=== PATIENT | female | born 1965 | race Native Hawaiian/Other Pacific Islander ===

== ENCOUNTER 2018-04-14 00:23 | Emergency (ER) | payer BC ==
[~2018-04-14] VITALS: Ht 177.8 cm; Wt 115.7 kg
[2018-04-14] MEDS ORDERED: METO50TA27 PO (01:39)
[2018-04-14 02:21] LABS: PLATELET COUNT 280 K/uL (152-353)
[2018-04-14 02:51] LABS: POTASSIUM 4.2 mmol/L (3.6-5.2)
[2018-04-14 05:00] VITALS: BP 158/72; TEMP 98
== END 2018-04-14 05:01 | disposition home or self-care (01) ==
LOC: ED 00:23
PROVIDERS: Specialist
DX: I80.9 Phlebitis and thrombophlebitis of unspecified site (principal)
CPT/HCPCS: 36415; 80053; 81000; 83735; 85027; 85379; 96365; 96375; 99284

== ENCOUNTER 2019-07-09 00:48 | Emergency (ER) | payer BC ==
[~2019-07-09] VITALS: Ht 177.8 cm; Wt 113.4 kg
[~2019-07-09 00:48] MED LIST: METO50TA27 PO
[2019-07-09 01:30] LABS: PLATELET COUNT 291 K/uL (152-353)
[2019-07-09 01:41] LABS: POTASSIUM 3.5 mmol/L (3.6-5.2); SODIUM 141 mmol/L (136-145)
[2019-07-09 03:05] VITALS: BP 132/79; TEMP 97.7
== END 2019-07-09 03:12 | disposition home or self-care (01) ==
LOC: ED 00:48
PROVIDERS: Emergency Medicine
DX: R10.9 Unspecified abdominal pain (principal); R07.89 Other chest pain
CPT/HCPCS: 36415; 80053; 82150; 82550; 82553; 83690; 84484; 85027; 93005; 96360; 96375; 99284; J1885; J2405; J2550; Q9963

== ENCOUNTER 2019-07-09 16:49 | Emergency (ER) | payer BC ==
[~2019-07-09] VITALS: Ht 177.8 cm; Wt 113.4 kg
[2019-07-09 16:51] VITALS: TEMP 99
[2019-07-09 17:33] LABS: POTASSIUM 3.6 mmol/L (3.6-5.2); SODIUM 140 mmol/L (136-145)
[2019-07-09 17:35] LABS: PLATELET COUNT 267 K/uL (152-353)
[2019-07-09 17:56] VITALS: BP 104/63
== END 2019-07-09 18:18 | disposition home or self-care (01) ==
LOC: ED 16:49
PROVIDERS: Emergency Medicine
DX: F41.9 Anxiety disorder, unspecified (principal)
CPT/HCPCS: 80053; 82550; 83690; 84484; 85027; 93005; 96374; 99284; J2060

== ENCOUNTER 2019-07-13 20:12 | Emergency (ER) | payer BC ==
[~2019-07-13] VITALS: Ht 177.8 cm; Wt 113.4 kg
[2019-07-13 20:25] VITALS: BP 136/77; TEMP 97.9
== END 2019-07-13 20:53 | disposition home or self-care (01) ==
LOC: ED 20:12
DX: R42 Dizziness and giddiness (principal)
CPT/HCPCS: 99281

== ENCOUNTER 2019-07-15 02:36 | Observation (INO) | payer BC ==
[~2019-07-15] VITALS: Ht 177.8 cm; Wt 110.3 kg
[2019-07-15] VITALS (15 sets, daily range): BP systolic 105–147; BP diastolic 50–91; TEMP 97–98.9; Ht 177.8 cm; Wt 110.3 kg
[2019-07-15 03:25] LABS: PLATELET COUNT 323 K/uL (152-353)
[2019-07-15 03:36] LABS: POTASSIUM 3.9 mmol/L (3.6-5.2)
[2019-07-15 12:16] LABS: PARTIAL THROMBOPLASTIN TIME 19.4 SECONDS (24.5-33.6)
[2019-07-16 03:29] LABS: POTASSIUM 3.6 mmol/L (3.6-5.2)
[2019-07-16 04:00] VITALS: BP 126/76; TEMP 98.7
[2019-07-16 08:00] VITALS: BP 118/74; TEMP 98.6
== END 2019-07-16 12:35 | disposition home or self-care (01) ==
LOC: ED 02:36 → MED/SURG 04:15
PROVIDERS: Emergency Medicine; ADMIT Family Medicine
DX: R07.89 Other chest pain (principal); I49.8 Other specified cardiac arrhythmias; K85.80 Other acute pancreatitis without necrosis or infection; K86.1 Other chronic pancreatitis; K21.9 Gastro-esophageal reflux disease without esophagitis; F41.8 Other specified anxiety disorders
CPT/HCPCS: 36415; 80053; 82550; 83690; 84484; 85027; 85610; 85730; 93005; 94760; 96367; 96374; 96375; 99220; 99283; G0378; J1885; J2405; J2550

== ENCOUNTER 2019-07-27 01:41 | Outpatient (CLI) | payer BC ==
[2019-07-28] MEDS ORDERED: CLON0.5T36 PO (16:17)
== END 2019-07-27 01:55 | disposition short-term general hospital (02) ==
LOC: AMB 01:41
DX: R55 Syncope and collapse (principal); R06.89 Other abnormalities of breathing
CPT/HCPCS: A0425; A0427

== ENCOUNTER 2019-07-27 01:59 | Observation (INO) | payer BC ==
[2019-07-27] VITALS (8 sets, daily range): BP systolic 101–162; BP diastolic 49–82; TEMP 97.7–98.4; Ht 177.8 cm; Wt 113.4 kg
[~2019-07-27] VITALS: Ht 177.8 cm; Wt 113.4 kg
[2019-07-27 02:29] LABS: PLATELET COUNT 183 K/uL (152-353)
[2019-07-27 02:40] LABS: POTASSIUM 3.8 mmol/L (3.6-5.2); SODIUM 135 mmol/L (136-145)
[2019-07-27 03:16] LABS: PARTIAL THROMBOPLASTIN TIME 18.7 SECONDS (24.5-33.6)
[2019-07-28 04:00] VITALS: BP 95/47; TEMP 97.8
[2019-07-28 08:00] VITALS: BP 105/63; TEMP 98
[2019-07-28 12:00] VITALS: BP 120/69; TEMP 98
[2019-07-28 16:00] VITALS: TEMP 98.3
[2019-07-28] MEDS ORDERED: CLON0.5T36 PO (16:17)
== END 2019-07-28 18:30 | disposition home or self-care (01) ==
LOC: ED 01:59 → MED/SURG 04:15
PROVIDERS: Hospitalist; ADMIT Internal Medicine
DX: R07.89 Other chest pain (principal); R06.09 Other forms of dyspnea; R55 Syncope and collapse; I10 Essential (primary) hypertension; I48.91 Unspecified atrial fibrillation
CPT/HCPCS: 36415; 36600; 80053; 80307; 80320; 81000; 82550; 82805; 83880; 84484; 85027; 85379; 85610; 85730; 93005; 94760; 96360; 96365; 96366; 96372; 96374; 96375; 96376; 99220; 99284; A9540; A9567; G0378; J1650; J2001; J2060; J2405

== ENCOUNTER 2019-08-07 19:04 | Emergency (ER) | payer BC ==
[~2019-08-07] VITALS: Ht 177.8 cm; Wt 106.6 kg
[~2019-08-07 19:04] MED LIST changes: +CLON0.5T36 PO
[2019-08-07 19:18] VITALS: TEMP 97.9
[2019-08-07] MEDS ORDERED: CARAFATE1 GM PO (19:42)
[2019-08-07 21:46] LABS: PLATELET COUNT 319 K/uL (152-353)
[2019-08-07 21:51] LABS: POTASSIUM 3.7 mmol/L (3.6-5.2)
[2019-08-08 01:04] VITALS: BP 128/72
== END 2019-08-08 01:05 | disposition home or self-care (01) ==
LOC: ED 19:04
PROVIDERS: Family Medicine
DX: K44.9 Diaphragmatic hernia without obstruction or gangrene (principal); K21.9 Gastro-esophageal reflux disease without esophagitis
CPT/HCPCS: 80053; 85027; 96360; 96374; 96375; 99284; J2405; J3490

== ENCOUNTER 2019-08-14 07:29 | Outpatient (CLI) | payer BC ==
[~2019-08-14 07:29] MED LIST changes: +CARAFATE1 GM PO
== END 2019-08-14 19:52 | disposition home or self-care (01) ==
LOC: RAD 07:29
DX: K44.9 Diaphragmatic hernia without obstruction or gangrene (principal)

== ENCOUNTER 2019-09-16 20:44 | Emergency (ER) | payer BC ==
[~2019-09-16] VITALS: Ht 177.8 cm; Wt 106.6 kg
[2019-09-16 22:02] LABS: PLATELET COUNT 258 K/uL (152-353)
[2019-09-16 22:29] LABS: POTASSIUM 3.8 mmol/L (3.6-5.2)
[2019-09-16 22:55] VITALS: BP 142/74; TEMP 97.5
== END 2019-09-16 22:55 | disposition home or self-care (01) ==
LOC: ED 20:44
PROVIDERS: Emergency Medicine
DX: K31.84 Gastroparesis (principal)
CPT/HCPCS: 36415; 80053; 82150; 83690; 85027; 99283

== ENCOUNTER 2019-10-15 13:32 | Outpatient (CLI) | payer BC | END 2019-10-15 20:19 | disposition home or self-care (01) | LOC: MRI 13:32 | DX: M54.12 Radiculopathy, cervical region (principal) ==

== ENCOUNTER 2020-02-15 22:44 | Emergency (ER) | payer OTHER, BC ==
[~2020-02-15] VITALS: Ht 177.8 cm; Wt 104.3 kg
[2020-02-15 23:59] VITALS: BP 173/78; TEMP 98.8
== END 2020-02-15 23:59 | disposition home or self-care (01) ==
LOC: ED 22:44
DX: S42.001D Fracture of unspecified part of right clavicle, subsequent encounter for fracture with routine healing (principal); S46.811A Strain of other muscles, fascia and tendons at shoulder and upper arm level, right arm, initial encounter
CPT/HCPCS: 96372; 99282; J1885

== ENCOUNTER 2020-03-19 23:02 | Emergency (ER) | payer BC ==
[~2020-03-19] VITALS: Ht 177.8 cm; Wt 103.4 kg
[2020-03-20 00:20] VITALS: BP 150/47; TEMP 98.1
== END 2020-03-20 00:20 | disposition home or self-care (01) ==
LOC: ED 23:02
DX: M54.2 Cervicalgia (principal); G89.29 Other chronic pain; Z87.828 Personal history of other (healed) physical injury and trauma
CPT/HCPCS: 96372; 99283; J1885; J2360

== ENCOUNTER 2020-06-17 14:01 | Outpatient (CLI) | payer BC | END 2020-06-17 23:04 | disposition home or self-care (01) | LOC: MRI 14:01 | DX: H90.42 Sensorineural hearing loss, unilateral, left ear, with unrestricted hearing on the contralateral side (principal) | CPT/HCPCS: 36415; 82565; 84520; A9576 ==

== ENCOUNTER 2020-06-28 15:16 | Outpatient (CLI) | payer BC | END 2020-06-28 20:33 | disposition home or self-care (01) | LOC: CT 15:16 | DX: M54.12 Radiculopathy, cervical region (principal) ==

== ENCOUNTER 2020-11-11 22:49 | Emergency (ER) | payer BC ==
[~2020-11-11] VITALS: Ht 177.8 cm; Wt 103.4 kg
[2020-11-12 00:05] LABS: PLATELET COUNT 186 K/uL (152-353)
[2020-11-12 00:11] LABS: POTASSIUM 3.4 mmol/L (3.6-5.2); SODIUM 139 mmol/L (136-145)
[2020-11-12 00:59] VITALS: BP 131/69; TEMP 98.2
== END 2020-11-12 01:00 | disposition home or self-care (01) ==
LOC: ED 22:49
PROVIDERS: Family Medicine
DX: R06.4 Hyperventilation (principal); R00.2 Palpitations; E87.6 Hypokalemia; Z20.828 Contact with and (suspected) exposure to other viral communicable diseases
CPT/HCPCS: 36415; 80053; 81000; 84484; 85027; 87635; 93005; 99283; U0003

== ENCOUNTER 2020-11-29 13:42 | Outpatient (CLI) | payer BC, OTHER | END 2020-11-29 21:36 | disposition home or self-care (01) | LOC: RAD 13:42 | PROVIDERS: ATTEND Registered Nurse | DX: U07.1 COVID-19 (principal); J18.9 Pneumonia, unspecified organism ==

== ENCOUNTER 2020-12-02 11:38 | Outpatient (CLI) | payer BC, OTHER | END 2020-12-02 23:04 | disposition home or self-care (01) | LOC: RAD 11:38 | PROVIDERS: ATTEND Nurse Practitioner | DX: R06.00 Dyspnea, unspecified (principal) ==

== ENCOUNTER 2021-01-16 09:38 | Outpatient (CLI) | payer BC | END 2021-01-16 22:11 | disposition home or self-care (01) | LOC: MAMMO 09:38 | PROVIDERS: ATTEND Internal Medicine Medical Oncology | DX: Z12.31 Encounter for screening mammogram for malignant neoplasm of breast (principal); R93.0 Abnormal findings on diagnostic imaging of skull and head, not elsewhere classified ==

== ENCOUNTER 2021-02-13 09:59 | Outpatient (CLI) | payer BC | END 2021-02-13 19:12 | disposition home or self-care (01) | LOC: CT 09:59 | PROVIDERS: ATTEND Internal Medicine Medical Oncology | DX: R93.0 Abnormal findings on diagnostic imaging of skull and head, not elsewhere classified (principal) | CPT/HCPCS: 36415; 82565; 84520; Q9963 ==

== ENCOUNTER 2022-03-16 15:54 | Emergency (ER) | payer BC ==
[~2022-03-16] VITALS: Ht 177.8 cm; Wt 117.9 kg
[2022-03-16 16:00] VITALS: BP 158/86; TEMP 98
== END 2022-03-16 16:36 | disposition home or self-care (01) ==
LOC: ED 15:54
DX: H10.89 Other conjunctivitis (principal); H20.9 Unspecified iridocyclitis
CPT/HCPCS: 99283

== ENCOUNTER 2022-06-12 23:14 | Emergency (ER) | payer BC ==
[~2022-06-12] VITALS: Ht 177.8 cm; Wt 115.2 kg
[2022-06-13 01:06] LABS: PLATELET COUNT 311 K/uL (152-353)
[2022-06-13 02:55] VITALS: BP 131/77; TEMP 98.1
== END 2022-06-13 03:00 | disposition home or self-care (01) ==
LOC: ED 23:14
PROVIDERS: Hospitalist
DX: R10.32 Left lower quadrant pain (principal); R10.31 Right lower quadrant pain; N30.10 Interstitial cystitis (chronic) without hematuria
CPT/HCPCS: 36415; 80053; 81002; 83690; 85027; 96360; 96372; 96374; 96375; 99284; J0696; J1885; J2001; J2405; Q9963

== ENCOUNTER 2022-06-15 09:31 | Outpatient (CLI) | payer BC | END 2022-06-15 18:56 | disposition home or self-care (01) | LOC: US 09:31 | PROVIDERS: ATTEND Nurse Practitioner Family | DX: R10.84 Generalized abdominal pain (principal) ==

== ENCOUNTER 2022-06-18 11:32 | Observation (INO) | payer BC ==
[~2022-06-18] VITALS: Ht 177.8 cm; Wt 116.3 kg
[2022-06-18 11:32] VITALS: BP 143/79; TEMP 98
[2022-06-18 12:33] LABS: PLATELET COUNT 262 K/uL (152-353)
[2022-06-18 12:49] LABS: POTASSIUM 3.5 mmol/L (3.6-5.2)
[2022-06-18 19:01] VITALS: BP 136/51; TEMP 98.2; Ht 177.8 cm; Wt 116.3 kg
[2022-06-18] MEDS ORDERED: BUTALBITAL/ACET1 TAB PO (19:35)
[2022-06-18] MEDS ORDERED: VITAMIN D50000 UNIT PO (19:37)
[2022-06-18] MEDS ORDERED: EZET10TA13 PO (19:39)
[2022-06-18] MEDS ORDERED: ONDA4TAB3 PO (19:40)
[2022-06-18] MEDS ORDERED: METO-837 PO (19:42)
[2022-06-18] MEDS ORDERED: LEVOFLOXACIN500 MG PO (19:43)
[2022-06-18] MEDS ORDERED: KETOROLAC10 MG PO (19:45)
[2022-06-18 20:00] VITALS: BP 136/51; TEMP 98.2
[2022-06-19] VITALS: BP 147/85; TEMP 98.4
[2022-06-19 04:00] VITALS: BP 115/58; TEMP 98
[2022-06-19 05:23] LABS: PLATELET COUNT 247 K/uL (152-353)
[2022-06-19 05:41] LABS: POTASSIUM 3.7 mmol/L (3.6-5.2)
[2022-06-19 07:52] VITALS: BP 114/42; TEMP 98
[2022-06-19 12:14] VITALS: BP 124/59; TEMP 98.2
== END 2022-06-19 16:05 | disposition home or self-care (01) ==
LOC: ED 11:32 → MED/SURG 17:30
PROVIDERS: Emergency Medicine Emergency Medical Services; ADMIT Internal Medicine; ATTEND Internal Medicine
DX: R07.89 Other chest pain (principal); R10.9 Unspecified abdominal pain; R19.7 Diarrhea, unspecified; I10 Essential (primary) hypertension; E78.49 Other hyperlipidemia; I48.91 Unspecified atrial fibrillation; K21.9 Gastro-esophageal reflux disease without esophagitis
CPT/HCPCS: 36415; 36600; 80053; 81002; 82150; 82805; 83690; 83735; 83880; 84484; 85027; 87635; 93005; 96360; 96374; 96375; 99220; 99284; G0378; J1885; J2270; J2405; J3490; U0003

== ENCOUNTER 2022-08-15 13:08 | Outpatient (CLI) | payer BC ==
[~2022-08-15 13:08] MED LIST changes: +BUTALBITAL/ACET1 TAB PO; +EZET10TA13 PO; +KETOROLAC10 MG PO; +LEVOFLOXACIN500 MG PO; +METO-837 PO; +ONDA4TAB3 PO; +VITAMIN D50000 UNIT PO
== END 2022-08-15 19:34 | disposition home or self-care (01) ==
LOC: MAMMO 13:08
PROVIDERS: ATTEND Registered Nurse
DX: Z12.31 Encounter for screening mammogram for malignant neoplasm of breast (principal)

== ENCOUNTER 2022-08-15 23:47 | Emergency (ER) | payer BC ==
[~2022-08-15] VITALS: Ht 177.8 cm; Wt 117.9 kg
[2022-08-16] VITALS: BP 174/86; TEMP 99.4
== END 2022-08-16 01:15 | disposition home or self-care (01) ==
LOC: ED 23:47
DX: N93.8 Other specified abnormal uterine and vaginal bleeding (principal)
CPT/HCPCS: 81000; 99282

== ENCOUNTER 2022-10-11 09:20 | Outpatient (CLI) | payer BC | END 2022-10-11 19:22 | disposition home or self-care (01) | LOC: RAD 09:20 | PROVIDERS: ATTEND Physician Assistant | DX: M54.2 Cervicalgia (principal); R06.09 Other forms of dyspnea ==

== ENCOUNTER 2022-10-30 14:32 | Outpatient (CLI) | payer BC | END 2022-10-30 22:21 | disposition home or self-care (01) | LOC: MRI 14:32 | PROVIDERS: ATTEND Physician Assistant | DX: M50.30 Other cervical disc degeneration, unspecified cervical region (principal) ==

== ENCOUNTER 2023-07-24 14:33 | Outpatient (CLI) | payer BC | END 2023-07-24 19:54 | disposition home or self-care (01) | LOC: MRI 14:33 | PROVIDERS: ATTEND Registered Nurse | DX: M89.8X8 Other specified disorders of bone, other site (principal) | CPT/HCPCS: A9576 ==